=== PATIENT | male | born 1995 | race American Indian/Alaskan Native ===

== ENCOUNTER 2017-11-08 11:36 | Emergency (ER) | payer SELFPAY ==
[2017-11-08 11:42] VITALS: BMI 21.3
[2017-11-08] MEDS ORDERED: TDAP Vaccine 0.5 mL Syr IM ONE (12:08)
--- NOTE | 2017-11-08 12:08 | ED PDOC ---
Arrival/HPI - General Chief Complaint: Abnormal Skin Integrity Time Seen by Provider: 11/08/17 12:02 Historian: Patient - History of Present Illness Narrative History of Present Illness (Text): 11/08/17 12:03 This 22 yo male who denies pmh, presents to this ED c/o right foot pain since this morning. Patient stated he stepped on a nail while walking. Nail puncture his shoe, into the plantar aspect of foot. Patient stated he immediately clean the wound. Denies other somatic complains. Time/Duration: Other (see hpi) Context: Home Past Medical History - Provider Review Nursing Documentation Reviewed: Yes - Infectious Disease Hx of Infectious Diseases: None - Psychiatric Hx Substance Use: Yes Family/Social History - Physician Review Nursing Documentation Reviewed: Yes Family/Social History: Other (noncontributory) Smoking Status: Current Some Days Smoker Hx Alcohol Use: Yes Frequency of alcohol use: Socially Hx Substance Use: Yes Substance used: marijuana Allergies/Home Meds Allergies/Adverse Reactions: Allergies shellfish derived Allergy (Verified 11/08/17 11:44) RASH Review of Systems - Review of Systems Constitutional: Normal. absent: Fatigue, Weight Change, Fevers, Night Sweats Eyes: Normal ENT: Normal Respiratory: Normal. absent: SOB, Cough Cardiovascular: Normal Gastrointestinal: Normal. absent: Abdominal Pain, Nausea, Vomiting Genitourinary Male: Normal. absent: Dysuria, Frequency, Hematuria Musculoskeletal: Other ((+) plantar puncure foot wound) Skin: Normal Neurological: Normal Endocrine: Normal Hemo/Lymphatic: Normal Psychiatric: Normal Physical Exam Vital Signs Temp Pulse Resp BP Pulse Ox 11/08/17 11:36 97.9 F 68 16 110/66 96 Temperature: Afebrile Blood Pressure: Normal Pulse: Regular Respiratory Rate: Normal Appearance: Positive for: Well-Appearing, Non-Toxic, Comfortable Pain Distress: None Mental Status: Positive for: Alert and Oriented X 3 - Systems Exam Head: Present: Atraumatic, Normocephalic Pupils: Present: PERRL Extroacular Muscles: Present: EOMI Conjunctiva: Present: Normal Mouth: Present: Moist Mucous Membranes Neck: Present: Normal Range of Motion Upper Extremity: Present: Normal Inspection, Normal ROM, NORMAL PULSES, Neurovascularly Intact, Capillary Refill < 2s. No: Cyanosis, Edema Lower Extremity: Present: NORMAL PULSES, Normal ROM, Neurovascularly Intact, Capillary Refill < 2 s, Other ((+) punture wound is tender on palpation. No erythema noted. Located plantar aspect at the level of distal 1st metatarsal area.). No: Edema, CALF TENDERNESS, Temperature Abnormalties Neurological: Present: GCS=15, CN II-XII Intact, Speech Normal, Motor Func Grossly Intact, Normal Sensory Function, Normal Cerebellar Funct, Gait Normal Skin: Present: Warm, Dry, Normal Color. No: Rashes Psychiatric: Present: Alert, Oriented x 3, Normal Insight, Normal Concentration Medical Decision Making ED Course and Treatment: 11/08/17 12:[address] Janel RIVERA,regarding the recommended ABX for plantar puncture wound with a nail through shoe. He said the most common bacteria which caused infection is Strep. He prefers Augmentin over Cipro, due to Cipro has warning. 11/08/17 12:50 Patient came c/o puncture wound foot injury x 1 day. Foot x-rays was negative for FB. Patient will start on Augmentin as instructed by Dr. Ni, MIGUEL. Patient was recommended to f/u pmd in 2-3 days. To return to ED if wound gets infected or drainage. Re-evaluation Time: 12:52 Reassessment Condition: Re-examined, Improved - RAD Interpretation Narrative RAD Interpretations (Text): 11/08/17 12:52 Foot x-rays: No Fx or FB Radiology Orders: 11/08/17 12:09 FOOT RIGHT 3 VIEWS ROUTINE [RAD] Stat - Medication Orders Current Medication Orders: Discontinued Medications Ciprofloxacin (Cipro) 500 mg PO ONCE STA PRN Reason: Protocol Stop: 11/08/17 12:09 Last Admin: 11/08/17 12:13 Dose: 500 mg Ibuprofen (Motrin Tab) 600 mg PO STAT STA Stop: 11/08/17 12:09 Last Admin: 11/08/17 12:13 Dose: 600 mg MAR Pain/Vitals Document 11/08/17 12:13 KRISTEL (Rec: 11/08/17 12:13 KRISTEL [id number]) Pain Reassessment Is This A Pain ReAssessment? No Tetanus/Reduced Diphtheria/Acell Pertussis (Boostrix Vaccine Inj) 0.5 ml IM .ONCE ONE Stop: 11/08/17 12:09 Last Admin: 11/08/17 12:13 Dose: 0.5 ml Immunization Registry Document 11/08/17 12:13 KRISTEL (Rec: 11/08/17 12:13 KRISTEL [id number]) Immunization Registry Consent Date 11/08/17 Disposition/Present on Arrival - Present on Arrival Any Indicators Present on Arrival: No History of DVT/PE: No History of Uncontrolled Diabetes: No Urinary Catheter: No History of Decub. Ulcer: No History Surgical Site Infection Following: None - Disposition Have Diagnosis and Disposition been Completed?: Yes Diagnosis: Puncture wound of plantar aspect of foot Disposition: HOME/ ROUTINE Disposition Time: 12:54 Patient Plan: Discharge Patient Problems: Current Active Problems Problem Status Onset Puncture wound of plantar aspect of foot Acute Condition: IMPROVED Discharge Instructions (ExitCare): Wound Care (DC) Additional Instructions: Call clinic doctor for follow up visit in 1-2 days. Clean wound daily with soap and water. Keep socks, and shoes clean. Take medication by mouth as instructed. Return to emergency if wound becomes painful, redness, or swelling. Patient was also recommended to f/u podiatry clinic. Prescriptions: Amoxicillin/Clavulanate [Augmentin 875 MG-125 MG] 1 tab PO BID #20 tab Ibuprofen [Motrin] 600 mg PO Q8 PRN #20 tab PRN Reason: Pain, Severe (8-10) Referrals: [facility] [Outside] - Follow up with primary [facility] [Outside] - Follow up with primary Podiatry Clinic [Outside] - Follow up with primary Forms: [employer] (Sammarinese), WORK NOTE
[2017-11-08 13:17] VITALS: BP 122/46; PULSE 74; RESP 18; TEMP 98.6; O2SAT 99
--- NOTE | 2017-11-08 13:59 | RAD ---
PROCEDURE: Right Foot Radiographs. . HISTORY: Stepped on nail with pain. Rule out FB COMPARISON: None. FINDINGS: BONES: No evidence of acute displaced fracture or dislocation of the bones of the right foot. . Presumed old healed fracture deformity of the right tibia and and likely the fibula as well. 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 SOFT TISSUES: No evidence of radiopaque foreign bodies. There is a slight contour deformity of the plantar skin surface at the level of the MCP articulation seen on lateral projection which may represent a anatomic variation however the possibility of a puncture with the slight not excluded. OTHER FINDINGS: None. IMPRESSION: No evidence of acute displaced fracture or dislocation of the bones of the right foot. . Presumed old healed fracture deformity of the right tibia and likely the fibula as well. 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 No evidence of radiopaque foreign bodies. . There is a slight contour deformity of the plantar skin surface at the level of the MCP articulation seen on lateral projection which may represent a anatomic variation however the possibility of a puncture with the slight not excluded.
== END 2017-11-08 13:17 | disposition home or self-care (01) ==
LOC: ED 11:36
DX: S91.331A Puncture wound without foreign body, right foot, initial encounter (principal); W45.0XXA Nail entering through skin, initial encounter; F17.200 Nicotine dependence, unspecified, uncomplicated; Y93.01 Activity, walking, marching and hiking; Y92.009 Unspecified place in unspecified non-institutional (private) residence as the place of occurrence of the external cause; Z23 Encounter for immunization